=== PATIENT | male | born 1940 | race Caucasian/White ===

== ENCOUNTER → 2017-01-14 | Outpatient (CLI) | payer MEDICARE, OTHER | LOC: GMAH 17:02 | PROVIDERS: ATTEND Family Medicine | DX: C61 Malignant neoplasm of prostate (principal) ==

== ENCOUNTER → 2017-01-16 | Outpatient (CLI) | payer MEDICARE, OTHER ==
--- NOTE | 2017-01-17 09:10 | MRI ---
Study: MRI of the Right Tibia/Fibula. Indication: PAIN RT LOWER LEG Technique: Multiplanar, multi sequence MRI of the right tibial/fibula was obtained without intravenous contrast. Comparison: None Findings: External skin marker placed along the lateral margin of the right lower leg. No underlying subcutaneous mass lesion identified. There is mild subcutaneous edema tracking along the superficial fascia of the adjacent musculature. No appreciable muscle herniation. Very subtle intramuscular edema noted within the medial and lateral heads of the gastrocnemius musculature which can indicate muscle strains. Remaining musculature appears intact without tear. No acute fracture of the visualized portion of the tibia or fibula. 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 Impression: Subcutaneous edema tracking along the superficial fascia of the lateral aspects of the right lower leg musculature at the site of concern. No muscle tear at this site. Mild intramuscular edema medial and lateral gastrocnemius musculature which can indicate sequela of muscle strains. Internal derangement of the knee suspected as above. Dedicated MRI of the knee can better evaluate. Electronically signed by: Adama Beavers MD 01/17/2017 9:08 AM CDT
== END | disposition home or self-care (01) ==
LOC: MRI 11:10
PROVIDERS: ATTEND Family Medicine
DX: M23.91 Unspecified internal derangement of right knee (principal); M79.661 Pain in right lower leg

== ENCOUNTER → 2019-06-01 | Outpatient (CLI) | payer MEDICARE, OTHER | LOC: GMA MATASK 10:29 | PROVIDERS: ATTEND Family Medicine | DX: Z12.5 Encounter for screening for malignant neoplasm of prostate (principal) ==